=== PATIENT | male | born 1980 | race Caucasian/White ===

== ENCOUNTER 2021-03-22 20:26 | Emergency (ER) | payer BC ==
[2021-03-22 20:33] VITALS: BP 129/80; PULSE 61; RESP 18; TEMP 98.8
--- NOTE | 2021-03-22 22:03 | XR ---
EXAMINATION TYPE: XR hand complete LT DATE OF EXAM: 03/22/2021 9:44 PM INDICATION: Patient age:Male; 40 years old; Reason for study: 4th digit injury; COMPARISON: None TECHNIQUE: 3 views of the left hand were obtained. FINDINGS: Normal alignment of the visualized joints. No acute osseous pathology is identified. No e vidence of soft tissue swelling. IMPRESSION: No acute osseous pathology.
--- NOTE | 2021-03-22 22:29 | ED ---
Upper Extremity HPI - General Chief Complaint: Extremity Injury, Upper Stated Complaint: Injury to ring finger Source: patient Mode of arrival: ambulatory Limitations: no limitations - History of Present Illness Initial Comments: 40-year-old male presents emergency room with reported left fourth digit pain. He was playing basketball when he jammed his left index finger on Monday night. Patient was wearing his wedding ring. He had significant swelling and bruising. He did not remove the ring until Monday. Swelling has decreased however the digit remains purple in discoloration. He follow-up his chiropractor this morning and was concerned about vascular supply to the digit and therefore he recommended that he be evaluated. Patient has improved range of motion. States that his pain is decreased. He did sustain a small cut to the medial aspect when he tried to remove the ring on Monday. He has been using peroxide over the area. Denies any redness, fevers or warmth. 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 ROS Other: All systems not noted in ROS Statement are negative. Past Medical History Past Medical History: No Reported History History of Any Multi-Drug Resistant Organisms: None Reported Past Surgical History: Appendectomy Past Psychological History: No Psychological Hx Reported Smoking Status: Never smoker Past Alcohol Use History: None Reported Past Drug Use History: None Reported General Exam Limitations: no limitations Course Vital Signs 03/22/21 20:31 Temperature 98.8 F Pulse Rate 61 Respiratory 18 Rate Blood Pressure 129/80 O2 Sat by Pulse 95 Oximetry Medical Decision Making - Medical Decision Making Upon arrival patient was placed into room 33. History and physical exam was performed. Patient does have good capillary refill and range of motion. Swelling appears improved from previous images the patient does have on his ph one. I did recommend an x-ray which failed to demonstrate an underlying fracture. Patient will be placed in a finger splint. Instructed to follow up with primary care doctor. May need repeat imaging if his pain persists. Return to the emergency department for any new or worsening symptoms. Patient agreement treatment plan was discharged in stable condition Disposition Clinical Impression: Finger sprain Disposition: HOME SELF-CARE Condition: Stable Instructions (If sedation given, give patient instructions): Finger Sprain (ED) Additional Instructions: Rest, ice and elevate the extremity. Take Motrin and Tylenol alternating every 4 hours for pain. Keep the splint on while active. Follow-up with the orthopedic hand doctor. Return to the emergency room for any new or worsening symptoms Is patient prescribed a controlled substance at d/c from ED?: No Referrals: Jazzy Rivera DO [Primary Care Provider] - 1-2 days Naresh Moreira DO [Doctor of Osteopathic Medicine] - 1-2 days Time of Disposition: 22:28
== END 2021-03-22 22:36 | disposition home or self-care (01) ==
LOC: EC 20:26
DX: S63.615A Unspecified sprain of left ring finger, initial encounter (principal); W23.1XXA Caught, crushed, jammed, or pinched between stationary objects, initial encounter; Y93.67 Activity, basketball
CPT/HCPCS: 99283